=== PATIENT | male | born 1965 | race Caucasian/White ===

== ENCOUNTER 2023-04-30 13:30 | Outpatient (CLI) | payer MEDICARE, SELFPAY ==
--- NOTE | ~2023-04-30 | XR_ITS ---
XR knee LT 3V 04/30/2023 14:39 Indication: Left knee pain Procedure: 3 views left knee Comparison: No prior studies for comparison. Findings: There is moderate tricompartment osteoarthritis of the left knee, most advanced in the medi al compartment. No fracture, subluxation or dislocation. There is moderate joint effusion. No foreign bodies. Impression: 1: Moderate tricompartment osteoarthritis of the left knee. 2: Moderate joint effusion. Reviewed, dictated and finalized at location A. Impression: 1: Moderate tricompartment osteoarthritis of the left knee. 2: Moderate joint effusion.
--- NOTE | ~2023-04-30 | XR_ITS ---
XR sacroiliac joints min 3V DATE: 04/30/2023 14:39 INDICATION: Arthropathic psoriasis TECHNIQUE: AP and bilateral oblique views COMPARISON: None FINDINGS: No fracture or dislocation, erosive change or ankylosis is noted at the sacroiliac joints. IMPRESSION: No significant abnormality Reviewed, dictated and finalized at Location A. Reviewed, dictated and finalized at location A. IMPRESSION: No significant abnormality
--- NOTE | ~2023-04-30 | XR_ITS ---
XR knee RT 3V DATE: 04/30/2023 14:39 INDICATION: Arthropathic psoriasis TECHNIQUE: 3 views COMPARISON: None FINDINGS: There is moderately severe loss of medial compartment joint space height, with periarticula r spurring at the medial and patellofemoral compartments. Mild suprapatellar knee joint effusion is suggested. No fracture, dislocation, periosteal reaction or bone destruction, radiopaque intra-articular loose b tim. The medial compartment chondrocalcinosis is suggested. IMPRESSION: Osteoarthritis, most prominent at the medial compartment Slight chondrocalcinosis is suggested at the medial compartment Mild suprapatellar knee joint effusion Reviewed, dictated and finalized at location A.
--- NOTE | ~2023-04-30 | XR_ITS ---
XR hand BI arthritis min 3V DATE: 04/30/2023 14:38 INDICATION: Arthropathic psoriasis TECHNIQUE: 4 views of each hand COMPARISON: None FINDINGS: There is minimal osteoarthritis at the metacarpophalangeal and interphalangeal joints. No e rosive change or chondrocalcinosis is noted. No fracture, dislocation, periosteal reaction or bone destruction. IMPRESSION: Minimal osteoarthritic change at the metacarpophalangeal and interphalangeal joints Reviewed, dictated and finalized at location A. IMPRESSION: Minimal osteoarthritic change at the metacarpophalangeal and interp halangeal joints
--- NOTE | ~2023-04-30 | XR_ITS ---
XR lumbar spine min 4V DATE: 04/30/2023 14:38 INDICATION: Arthropathic psoriasis TECHNIQUE: AP, lateral, bilateral oblique views, coned lateral lumbosacral view COMPARISON: 04/30/2004 lumbar spine FINDINGS: There is degenerative spurring of the lower thoracic spine. Mild to moderate degenerative disc disease at L1-2 and L2-3. L3-4, L4-5 and L5-S1 interspaces appear relatively well preserved. There is degenerative changes at the possible joints particularly at L4-5 and L5-S1 bilaterally with associated grade 1 anterolisthesis at L4-5. No pars intra-articular is defect is noted. The sacroiliac joints are intact. There is extensive calcification of abdominal aorta and iliac arteries, without evidence of abdominal aortic aneurysm. IMPRESSION: Lumbar spondylosis Reviewed, dictated and finalized at location A. IMPRESSION: Lumbar spondylosis
--- NOTE | ~2023-04-30 | XR_ITS ---
XR_[id number]_CR DATE: 04/30/2023 14:39 INDICATION: Arthropathic psoriasis TECHNIQUE: 4 weightbearing views COMPARISON: None FINDINGS: Pes planus. Moderate posterior calcaneal enthesopathy. No erosive change or periostitis is noted. There is narrowing at some of the interphalangeal joints, consistent with mild osteoarthritis. No fracture, dislocation, periosteal reaction or bone destruction, erosive change. IMPRESSION: Pes planus Posterior calcaneal enthesopathy Mild osteoarthritis at interphalangeal joints Reviewed, dictated and finalized at Location A. Reviewed, dictated and finalized at location A.
--- NOTE | ~2023-04-30 | XR_ITS ---
XR_[id number] DATE: 04/30/2023 14:39 INDICATION: Arthropathic psoriasis TECHNIQUE: 4 weightbearing views COMPARISON: None FINDINGS: Pes planus. Mild posterior and slight plantar calcaneal enthesopathy without associated erosive change or periost itis. No fracture or dislocation, periosteal reaction or bone destruction is detected. Osteoarthritic changes are noted at some of the interphalangeal joints, particularly the proximal and distal interphalangeal joints of the third digit. IMPRESSION: Mild posterior and slight plantar calcaneal enthesopathy Mild osteophyte is probably primarily the interphalangeal joints of the third digit Pes planus Reviewed, dictated and finalized at Location A. Reviewed, dictated and finalized at location A. IMPRESSION: Mild posterior and slight plantar calcaneal enthesopathy Mild osteophyte is probably primarily the interphalangeal joints of the third d igit Pes planus
[2023-04-30 13:50] LABS: Hematocrit 41.4 % (40.0-54.0); Hemoglobin 13.7 g/dL (14.0-18.0); Mean Corpuscular HGB Conc 33.1 g/dL (32.0-36.0); Mean Corpuscular Hemoglobin 29.2 pg (27.0-31.0); Mean Corpuscular Volume 88.3 fL (78.0-102.0); Mean Platelet Volume 10.1 fl (8.7-11.0); Platelet Count Result 173 K/mm3 (150-420); Red Blood Count 4.69 M/mm3 (4.70-6.10); Red Cell Distribution Width 13.7 % (11.6-14.4); White Blood Count 7.6 K/mm3 (4.8-10.8)
[2023-04-30 13:54] LABS: Appearance Urine Clear (Clear); Bilirubin Urine Negative (Negative); Blood Urine Trace-Intact (Negative); Color Urine Yellow (Yellow); Glucose Urine UA Negative (Negative); Ketones Urine Negative (Negative); Leukocyte Esterase Ur Trace LEU/UL (Negative); Nitrate Urine Negative (Negative); Protein Urine Negative (Negative); Specific Grav Ur 1.025 (1.010-1.020); Urobilinogen Urine 0.2 mg/dL (0.2-1.0); pH Urine 6.5 (5.0-8.0)
[2023-04-30 13:59] LABS: Add Urine Microscopic? YES; Bacteria Urine Trace /hpf; Squamous Epithelial Cell Urine Few /hpf (Few)
[2023-04-30 14:13] LABS: Rheumatoid Factor Screen Negative (Negative)
[2023-04-30 14:18] LABS: Alanine Aminotransferase 22 U/L (16-63); Albumin Level 3.9 g/dL (3.4-5.0); Alkaline Phosphatase 102 U/L (46-116); Anion Gap 10 mmol/L (8-16); Aspartate Amino Transferase 13 U/L (15-37); Bilirubin,Total 0.5 mg/dL (0.00-1.00); Blood Urea Nitrogen 23 mg/dL (7-18); CRP 2.1 mg/dL (0.0-0.9); Calcium 9.4 mg/dL (8.5-10.1); Carbon Dioxide 26 mmol/L (21-32); Chloride 103 mmol/L (98-108); Estimated Glomerular Filt Rate > 60; Glucose 110 mg/dL (70-99); Osmolality Calculated 292 mOsm/kg (285-295); Potassium 4.2 mmol/L (3.5-5.1); Sodium 139 mmol/L (136-145); Total Protein 6.7 g/dL (6.4-8.2)
[2023-04-30 14:49] LABS: Erythrocyte Sedimentation Rate 20 mm/hr (0-20)
[2023-05-03 12:28] LABS: NIL 0.01 IU/mL; Quantiferon TB Plus, 1T NEGATIVE (NEGATIVE); TB1-NIL 0.01 IU/mL; TB2-NIL 0.01 IU/mL
[2023-05-04 21:35] LABS: Anti Cyclic Citrullinated Pept <16 Units (<20)
[2023-05-05 06:48] LABS: Hepatitis B Surface Antibody Nonreactive (Nonreactive); Hepatitis B Surface Antigen Nonreactive (Nonreactive)
== END 2023-04-30 13:31 | disposition home or self-care (01) ==
LOC: CHSIMG 13:34
PROVIDERS: PCP Family Medicine; Visit Provider Internal Medicine
DX: M21.41 Flat foot [pes planus] (acquired), right foot (principal); M77.31 Calcaneal spur, right foot; M19.071 Primary osteoarthritis, right ankle and foot; M77.32 Calcaneal spur, left foot; M21.42 Flat foot [pes planus] (acquired), left foot; M25.461 Effusion, right knee; M25.462 Effusion, left knee; M43.06 Spondylolysis, lumbar region; M17.0 Bilateral primary osteoarthritis of knee; L40.50 Arthropathic psoriasis, unspecified; R89.9 Unspecified abnormal finding in specimens from other organs, systems and tissues; M19.90 Unspecified osteoarthritis, unspecified site; Z79.899 Other long term (current) drug therapy; Z71.89 Other specified counseling
CPT/HCPCS: 36415; 72110; 72202; 73130; 73562; 73630; 80053; 81001; 85027; 85652; 86038; 86140; 86200; 86430; 86480; 86706; 86803; 87340

== ENCOUNTER 2023-07-02 09:15 | Outpatient (CLI) | payer MEDICARE, SELFPAY ==
--- NOTE | ~2023-07-02 | XR_ITS ---
XR knee LT min 4V 07/02/2023 09:45 Indication: Left knee pain for 3 months Procedure: 4 views left knee Comparison: 04/30/2023 Findings: Severe tricompartment osteoarthritis of the left knee. Moderate joint effusion. No fracture or traumatic malalignment. Impression: 1: Severe tricompartment osteoarthritis of the left knee. 2: Moderate joint effusion. Reviewed, dictated and finalized at location L. 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 2: Moderate joint effusion.
== END 2023-07-02 09:16 | disposition home or self-care (01) ==
LOC: CHSIMG 09:16
PROVIDERS: PCP Family Medicine; Visit Provider Orthopaedic Surgery
DX: M25.562 Pain in left knee (principal); M17.12 Unilateral primary osteoarthritis, left knee; M25.462 Effusion, left knee
CPT/HCPCS: 73564